=== PATIENT | male | born 1980 | race Caucasian/White ===

== ENCOUNTER 2024-01-13 23:25 | Emergency (ER) | payer OTHER ==
[~2024-01-13] VITALS: Ht 182.9 cm; Wt 88.0 kg
[2024-01-13 23:33] VITALS: TEMP 98.4; O2SAT 98
[2024-01-14] MEDS ORDERED: ONDANSETRON HCL 4MG/2ML INJ IV STA (00:35)
[2024-01-14] MEDS ORDERED: FENTANYL CITRATE/PF 50MCG/ML 2ML VIAL IV ONE (00:45)
[2024-01-14 01:44] LABS: BASOPHILS % 0.4 % (0.0-2.0); DIFFERENTIAL COMMENT 0; EOSINOPHILS % 0.5 % (0.0-5.0); HEMATOCRIT. 42.5 % (42.0-52.0); HEMOGLOBIN. 15.3 g/dL (14.0-18.0); LYMPHOCYTES % 31.9 % (20.0-50.0); MEAN CORPUSCULAR HEMOGLOBIN 31.9 pg (28.0-32.0); MEAN CORPUSCULAR VOLUME 88.5 fL (80.0-94.0); MEAN PLATELET VOLUME 8.1 fl (7.4-10.4); MONOCYTES % 7.7 % (2.0-8.0); NEUTROPHILS % 59.5 % (40.0-76.0); PLATELET 238 x1000/uL (130-400); RED CELL DISTRIBUTION WIDTH 13.4 % (11.6-14.6); WHITE BLOOD COUNT 6.4 x1000/uL (4.5-11.0)
[2024-01-14 01:48] LABS: CHLORIDE 110 mEq/L (98-107); POTASSIUM 3.9 mEq/L (3.5-5.1); SODIUM 143 mEq/L (136-145)
[2024-01-14 01:49] LABS: CALCIUM 10.2 mg/dL (8.7-10.4); CARBON DIOXIDE 22 mEq/L (21-32)
[2024-01-14 01:54] LABS: CREATININE 1.2 mg/dL (0.6-1.3); ETHANOL BLOOD 115 mg/dL (<10); GLUCOSE 96 mg/dL (70-105); UREA NITROGEN BLOOD 9 mg/dL (9-23)
[2024-01-14] MEDS: FENTANYL CITRATE/PF 50MCG/ML 2ML VIAL IV NR (02:43)
[2024-01-14] MEDS: ONDANSETRON HCL 4MG/2ML INJ IV NR (02:44)
[2024-01-14] MEDS ORDERED: IOHEXOL-300 100 ML BOTTLE ONE (03:35)
[2024-01-14 07:09] VITALS: BP 125/78; PULSE 78; RESP 14; O2SAT 98
== END 2024-01-14 08:08 | disposition home or self-care (01) ==
LOC: EDBD 23:25 → ER 23:25
DX: T51.0X1A Toxic effect of ethanol, accidental (unintentional), initial encounter (principal); S09.90XA Unspecified injury of head, initial encounter; G93.40 Encephalopathy, unspecified
CPT/HCPCS: 99291; 80048; 80320; 85025; 36415; 71045; 70450; 72125; 74177; 96374; 96375; J3010; Q9967; J2405; G0480